=== PATIENT | male | born 1945 | race Caucasian/White ===

== ENCOUNTER 2018-02-12 12:05 | Emergency (ER) | payer MEDICARE, OTHER ==
[2018-02-12 12:21] VITALS: BP 102/47
--- NOTE | 2018-02-12 13:04 | UC ---
Sofia Vasquez Jade, scribed for Jean-Pierre Go MD on 02/12/18 at 1256 . Syncope/New Syncope HPI - HPI Summary HPI Summary: Patient is a 72 y/o male who presents to [facility] s/p near-syncopal episode. He states after walking 18 holes while golfing, he suddenly became dizzy, diaphoretic, and felt like he was going to pass out. Patient denies any LOC, CP , SOB, headache, or blurred vision. PMHx HTN and diabetes. - History Of Current Complaint Chief Complaint: UCDizziness Stated Complaint: DIZZY Time Seen by Provider: 02/12/18 12:12 Hx Obtained From: Patient Onset/Duration: Sudden Onset, Resolved Activity At Onset: Exertion - Walked 18 holes while golfing Timing: Constant Context: Other - No LOC Pain Intensity: 0 Pain Scale Used: 0-10 Numeric Aggravating Factor(s): Exertion - Walking 18 holes while golfing Alleviating Factor(s): Nothing Associated Signs And Symptoms: Positive: Diaphoresis, Dizzy. Negative: Chest Pain, Headache - Allergies/Home Medications Allergies/Adverse Reactions: Allergies Allergy/AdvReac Type Severity Reaction Status Date / Time No Known Allergies Allergy Verified 02/12/18 12:18 Home Medications: Home Medications Atorvastatin* [Lipitor*] 40 mg PO 1700 02/12/18 [History Confirmed 02/12/18] Baclofen TAB* [Lioresal TAB*] 10 mg PO TID 02/12/18 [History Confirmed 02/12/18] Cholecalciferol TAB* [Vitamin D TAB*] 1,000 unit PO DAILY 02/12/18 [History Confirmed 02/12/18] Esomeprazole(NF) [NexIUM(NF)] 40 mg PO DAILY 02/12/18 [History Confirmed ] Ferrous Sulfate TAB* 325 mg PO DAILY 02/12/18 [History Confirmed 02/12/18] Lisinopril TAB* [Prinivil TAB*] 10 mg PO DAILY 02/12/18 [History Confirmed 02/12] Sertraline* [Zoloft*] 100 mg PO DAILY 02/12/18 [History Confirmed 02/12/18] SitaGLIPtin (NF) [Januvia (NF)] 100 mg PO 02/12/18 [History] metFORMIN* [Glucophage 850 MG TAB *] 850 mg PO 0800,1700 02/12/18 [History Confirmed 02/12/18] PMH/Surg Hx/FS Hx/Imm Hx Endocrine History: Diabetes - Type 2 Cardiovascular History: Hypertension - Surgical History Surgical History: Yes Surgery Procedure, Year, and Place: detached retina. cataracts - Family History Known Family History: Negative: Hypertension, Diabetes - Social History Alcohol Use: None Substance Use Type: None Smoking Status (MU): Never Smoked Tobacco Review of Systems Constitutional: Other - Diaphoresis Eyes: Negative - Blurred vision Respiratory: Negative - SOB Cardiovascular: Negative - CP Neurological: Other - POSITIVE: dizziness, NEGATIVE: headache, LOC All Other Systems Reviewed And Are Negative: Yes Physical Exam - Summary Physical Exam Summary: VITAL SIGNS: Reviewed. GENERAL: Patient is a well-developed and nourished MALE who is lying comfortable in the stretcher. Patient is not in any acute respiratory distress. HEAD AND FACE: Normocephalic EYES: PERRLA, EOMI x 2. EARS: Hearing grossly intact. MOUTH: Oropharynx within normal limits. NECK: Supple, trachea is midline, no adenopathy, no JVD, no carotid bruit. CHEST: Symmetric, no tenderness at palpation LUNGS: Clear to auscultation bilaterally. No wheezing or crackles. CVS: Regular rate and rhythm, S1 and S2 present, no murmurs or gallops appreciated. ABDOMEN: Soft, non-tender. Bowel sounds are normal. No abdominal abnormal pulsations. EXTREMITIES: Full ROM in all major joints, no edema, no cyanosis or clubbing. NEURO: Alert and oriented x 3. No acute neurological deficits. Speech is normal and follows commands. SKIN: Dry and warm Triage Information Reviewed: Yes Vital Signs: Initial Vital Signs Temp 97.1 F 02/12/18 12:13 Pulse 65 02/12/18 12:13 Resp 16 02/12/18 12:13 BP 102/47 02/12/18 12:13 Pulse Ox 94 02/12/18 12:13 Vital Signs Reviewed: Yes Diagnostics - EKG Cardiac Rate: NL - 66 bpm Cardiac Rhythm: Sinus: Normal ST Segment: Normal - No elevation Syncope Course/Dx - Course Course Of Treatment: Patient presented to the urgent care with a chief complaint of having dizziness, feeling like he is going to pass out when he was playing golf. He reports that he became diaphoretic and still having some dizziness in the . EKG shows normal sinus rhythm without any ST elevation. Because of his comorbidities, presentation symptoms have recommended for the patient to go to the emergency department for further workup and management. The patient declined going to the [facility] emergency department. She reports that he would like to go to [facility] ER. She declined ambulance transport. He was going with the patient's . I extensively discussed with the patient the benefits and risk of leaving AMA. I also discussed the alternatives to leaving AMA, however, the patient still insist to leave the AMA.. The primary nurse and the charge nurse also strongly recommended that the patient should not leave AMA. Patient understands the risk of leaving AMA, which includes but is not restricted to . Patient is Alert and oriented times three and patient verbalizes understanding. Patient has full capacity and is cognitively intact. Patient signed the AMA form. Patient was also advised to return to ED if he changes his mind or if the symptoms worsen or other symptoms appear. Patient understands and agrees. - Differential Dx/Diagnosis Provider Diagnoses: Near Syncope. Dizziness Discharge - Sign-Out/Discharge Documenting (check all that apply): Discharge/Admit/Transfer - Discharge Plan Condition: Stable Disposition: HOME Patient Education Materials: Near Syncope (ED), Dizziness (ED) Referrals: Atul UPTON,Morris Amanda [Primary Care Provider] - Additional Instructions: Patient will be discharged to the ED for further assessment. He declines going to [facility] she said department, he prefers to go to [facility] ER. Patient declined ambulance - Billing Disposition and Condition Condition: STABLE Disposition: Home The documentation as recorded by the Sofia bautista Jade accurately reflects the service I personally performed and the decisions made by me, Jean-Pierre Go MD.
== END 2018-02-12 13:53 | disposition left against medical advice (07) ==
LOC: UCEAST 12:05
DX: R55 Syncope and collapse (principal); R42 Dizziness and giddiness; R61 Generalized hyperhidrosis; E11.9 Type 2 diabetes mellitus without complications; Z79.84 Long term (current) use of oral hypoglycemic drugs; I10 Essential (primary) hypertension
CPT/HCPCS: 93005; 99202; G0463

== ENCOUNTER 2018-02-12 14:17 | Emergency (ER) | payer MEDICARE, OTHER ==
[2018-02-12] MEDS ORDERED: NS 0.9% 1000 ML* 1,000 ML IV ONE (14:48)
[2018-02-12] MEDS ORDERED: Meclizine TAB* 12.5 MG PO ONE (14:48)
[2018-02-12 15:06] LABS: ABS Basophils 0 10^3/ul (0-0.2); ABS Eosinophils 0 10^3/ul (0-0.6); ABS Lymphocytes 0.7 10^3/ul (1.0-4.8); ABS Monocytes 0.9 10^3/ul (0-0.8); ABS Neutrophils 11.3 10^3/ul (1.5-7.7); ABS Nucleated RBC 0 10^3/ul; Eosinophil % 0.2 % (0-6); Hematocrit 39 % (42-52); Hemoglobin 12.9 g/dl (14.0-18.0); Lymphocyte % 5.7 % (25-47); Mean Corpuscular HGB Conc 33 g/dl (31-36); Mean Corpuscular Hemoglobin 28 pg (27-31); Mean Corpuscular Volume 82 fL (80-94); Mean Platelet Volume 7.3 um3 (7.4-10.4); Nucleated Red Blood Cells % 0; Platelet Count 211 10^3/ul (150-450); Red Blood Count 4.71 10^6/ul (4.00-5.40); Red Cell Distribution Width 15 % (10.5-15); White Blood Count 12.9 10^3/ul (3.5-10.8)
[2018-02-12 15:14] LABS: INR 0.98 (0.77-1.02)
--- NOTE | 2018-02-12 15:22 | RAD ---
INDICATION: Dizziness, intermittent left arm numbness. COMPARISON: Comparison is made with prior MRI of the brain from November 19, 2006. TECHNIQUE: Contiguous axial sections of the brain were obtained from the skull base to the vertex without contrast. FINDINGS: The ventricles, cisterns and sulci are enlarged consistent with diffuse atrophy. There are multiple focal areas of decreased density in the subcortical and periventricular white matter suggestive of moderate to severe chronic small vessel ischemic changes. No other focal abnormality or mass effect is seen. There is no evidence for hemorrhage. No significant focal osseous abnormality is seen. There is partial opacification of the sphenoid sinus on the right side. The visualized portion of the paranasal sinuses and mastoid air cells otherwise appear clear. IMPRESSION: 1. NO EVIDENCE FOR ACUTE FINDING. 2. ATROPHY AND FINDINGS MOST CONSISTENT WITH MODERATE TO SEVERE CHRONIC SMALL VESSEL ISCHEMIC CHANGES.
[2018-02-12 15:24] LABS: EGFR Non-African American 42.8 (>60)
--- NOTE | 2018-02-12 15:53 | RAD ---
INDICATION: Dizziness. COMPARISON: There are no prior studies available for comparison. TECHNIQUE: A portable view of the chest was obtained. FINDINGS: Cardiac and mediastinal contours appear to be within normal limits. There is a curvilinear density at the left lung base suggestive of atelectasis or scarring. The lungs are otherwise clear. No pleural effusion is seen. IMPRESSION: NO EVIDENCE FOR ACUTE DISEASE.
[2018-02-12] MEDS ORDERED: Magnesium Sulfate 2 GM IV* 2 GM/50 ML BAG IVPB ONE (16:23)
[2018-02-12] MEDS ORDERED: NS 0.9% 100 ML* 100 ML ONE (16:44)
[2018-02-12] MEDS ORDERED: Magnesium Sulfate IV* 2 GM in NS 0.9% 100 ML* 100 ML IVPB ONE (17:00)
[2018-02-12 17:54] LABS: Urine Appearance Cloudy; Urine Blood Negative (Negative); Urine Color Yellow; Urine Ketones Negative (Negative); Urine Protein Negative (Negative); Urine Specific Gravity 1.016 (1.010-1.030); Urine Urobilinogen Negative (Negative)
--- NOTE | 2018-02-12 19:02 | ED ---
Pedro, AttebDaniel dozier, scribed for Oswaldo Garnica MD on 02/12/18 at 1509 . Dizziness - HPI Summary HPI Summary: Pt is a 72 y/o M referred from [facility] c/o dizziness and feeling "disoriented" following playing golf this AM. Dizziness characterized as lightheadedness and spinning, somewhat similar to prior instances of vertigo. Currently, not present. Pt denies SOB, palpitations, ear pain, bloody stool. Aggravating factors: ambulation. Alleviating factors: rest. Pt states that he was on the last hole of 18 when he started feeling light headed. He was incapable of finishing hole so he laid down in the shade to rest. Witnesses noted diaphoresis while laying down. Pt was previously recommended by PCP that he should walk half of the course and ride the other, however, today he walked entire course. He noted constipation and mild abdominal pain this AM but has since resolved. Pt also noted intermittent tingling in his left arm for a few days, currently not present. PMHx: MS, noted that pt has had vertigo. - History Of Current Complaint Chief Complaint: EDSyncope Stated Complaint: NEAR SYNCOPE-SENT F/CC Time Seen by Provider: 02/12/18 14:26 Hx Obtained From: Patient Onset/Duration: Resolved, Gradually Severity Currently: None Character: Room Spinning - similar to vertigo, Lightheaded, Dizzy Aggravating Factor(s): Exertion Alleviating Factor(s): Rest, Lying Down Associated Signs And Symptoms: Positive: Diaphoresis. Negative: SOB, Fever - Allergies/Home Medications Allergies/Adverse Reactions: Allergies Allergy/AdvReac Type Severity Reaction Status Date / Time No Known Allergies Allergy Verified 02/12/18 12:18 PMH/Surg Hx/FS Hx/Imm Hx Endocrine/Hematology History: Reports: Hx Diabetes - type II Cardiovascular History: Reports: Hx Hypertension - Surgical History Surgery Procedure, Year, and Place: detached retina. cataracts Infectious Disease History: No Infectious Disease History: Denies: Traveled Outside the [place] in Last 30 Days - Family History Known Family History: Negative: Hypertension, Diabetes - Social History Occupation: Retired Lives: With Family Alcohol Use: None Substance Use Type: Reports: None Smoking Status (MU): Never Smoked Tobacco Review of Systems Positive: Skin Diaphoresis. Negative: Fever Negative: Ear Ache Negative: Chest Pain Negative: Shortness Of Breath Negative: other - bloody stool Neurological: Other - dizziness (resolved), "disoriented," tingling in LUE All Other Systems Reviewed And Are Negative: Yes Physical Exam - Summary Physical Exam Summary: General: well-appearing, no pain distress Skin: warm, color reflects adequate perfusion, dry Head: normal Eyes: EOMI, ADELE ENT: normal Neck: supple, nontender Respiratory: CTA, breath sounds present Cardiovascular: RRR Abdomen: soft, nontender Bowel: present Musculoskeletal: normal, strength/ROM intact Neurological: sensory/motor intact, A&O x3 Psychological: affect/mood appropriate Triage Information Reviewed: Yes Vital Signs On Initial Exam: Initial Vitals Temp Pulse Resp BP Pulse Ox 97.8 F 78 18 121/70 97 02/12/18 14:21 02/12/18 14:21 02/12/18 14:21 02/12/18 14:21 02/12/18 14:21 Vital Signs Reviewed: Yes Diagnostics - Vital Signs Vital Signs Temp Pulse Resp BP Pulse Ox 02/12/18 14:21 97.8 F 78 18 121/70 97 - Laboratory Lab Results: Lab Results 02/12/18 02/12/18 02/12/18 Range/Units 14:59 14:59 14:59 WBC 12.9 H (3.5-10.8) 10^3/ul RBC 4.71 (4.00-5.40) 10^6/ul Hgb 12.9 L (14.0-18.0) g/dl Hct 39 L (42-52) % MCV 82 (80-94) fL MCH 28 (27-31) pg MCHC 33 (31-36) g/dl RDW 15 (10.5-15) % Plt Count 211 (150-450) 10^3/ul MPV 7.3 L (7.4-10.4) um3 Neut % (Auto) 87.2 H (38-83) % Lymph % (Auto) 5.7 L (25-47) % [place] % (Auto) 6.6 (0-7) % Eos % (Auto) 0.2 (0-6) % Baso % (Auto) 0.3 (0-2) % Absolute Neuts (auto) 11.3 H (1.5-7.7) 10^3/ul Absolute Lymphs (auto) 0.7 L (1.0-4.8) 10^3/ul Absolute Monos (auto) 0.9 H (0-0.8) 10^3/ul Absolute Eos (auto) 0 (0-0.6) 10^3/ul Absolute Basos (auto) 0 (0-0.2) 10^3/ul Absolute Nucleated RBC 0 10^3/ul Nucleated RBC % 0 INR (Anticoag Therapy) 0.98 (0.77-1.02) APTT 27.9 (26.0-36.3) seconds Sodium 141 (135-145) mmol/L Potassium 4.9 (3.5-5.0) mmol/L Chloride 106 (101-111) mmol/L Carbon Dioxide 25 (22-32) mmol/L Anion Gap 10 (2-11) mmol/L BUN 30 H (6-24) mg/dL Creatinine 1.60 H (0.67-1.17) mg/dL Est GFR ( Amer) 51.8 (>60) Est GFR (Non-Af Amer) 42.8 (>60) BUN/Creatinine Ratio 18.8 (8-20) Glucose 148 H (70-100) mg/dL Lactic Acid (0.5-2.0) mmol/L Calcium 9.5 (8.6-10.3) mg/dL Magnesium 1.6 L (1.9-2.7) mg/dL Total Bilirubin 0.80 (0.2-1.0) mg/dL AST 21 (13-39) U/L ALT 16 (7-52) U/L Alkaline Phosphatase 100 (34-104) U/L Total Creatine Kinase 69 (10-223) U/L CK-MB (CK-2) 1.9 (0.6-6.3) ng/mL Troponin I 0.00 (<0.04) ng/mL C-Reactive Protein 1.25 (<8.01) mg/L B-Natriuretic Peptide ( - 100) pg/mL Total Protein 7.1 (6.4-8.9) g/dL Albumin 4.2 (3.2-5.2) g/dL Globulin 2.9 (2-4) g/dL Albumin/Globulin Ratio 1.4 (1-3) Lipase 68 (11.0-82.0) U/L TSH 2.38 (0.34-5.60) mcIU/mL Urine Color Urine Appearance Urine pH (5-9) Ur Specific Ida (1.010-1.030) Urine Protein (Negative) Urine Ketones (Negative) Urine Blood (Negative) Urine Nitrate (Negative) Urine Bilirubin (Negative) Urine Urobilinogen (Negative) Ur Leukocyte Esterase (Negative) Urine Glucose (Negative) 02/12/18 02/12/18 02/12/18 Range/Units 14:59 14:59 17:31 WBC (3.5-10.8) 10^3/ul RBC (4.00-5.40) 10^6/ul Hgb (14.0-18.0) g/dl Hct (42-52) % MCV (80-94) fL MCH (27-31) pg MCHC (31-36) g/dl RDW (10.5-15) % Plt Count (150-450) 10^3/ul MPV (7.4-10.4) um3 Neut % (Auto) (38-83) % Lymph % (Auto) (25-47) % [place] % (Auto) (0-7) % Eos % (Auto) (0-6) % Baso % (Auto) (0-2) % Absolute Neuts (auto) (1.5-7.7) 10^3/ul Absolute Lymphs (auto) (1.0-4.8) 10^3/ul Absolute Monos (auto) (0-0.8) 10^3/ul Absolute Eos (auto) (0-0.6) 10^3/ul Absolute Basos (auto) (0-0.2) 10^3/ul Absolute Nucleated RBC 10^3/ul Nucleated RBC % INR (Anticoag Therapy) (0.77-1.02) APTT (26.0-36.3) seconds Sodium (135-145) mmol/L Potassium (3.5-5.0) mmol/L Chloride (101-111) mmol/L Carbon Dioxide (22-32) mmol/L Anion Gap (2-11) mmol/L BUN (6-24) mg/dL Creatinine (0.67-1.17) mg/dL Est GFR ( Amer) (>60) Est GFR (Non-Af Amer) (>60) BUN/Creatinine Ratio (8-20) Glucose (70-100) mg/dL Lactic Acid 1.5 (0.5-2.0) mmol/L Calcium (8.6-10.3) mg/dL Magnesium (1.9-2.7) mg/dL Total Bilirubin (0.2-1.0) mg/dL AST (13-39) U/L ALT (7-52) U/L Alkaline Phosphatase (34-104) U/L Total Creatine Kinase (10-223) U/L CK-MB (CK-2) (0.6-6.3) ng/mL Troponin I 0.00 (<0.04) ng/mL C-Reactive Protein (<8.01) mg/L B-Natriuretic Peptide 33 ( - 100) pg/mL Total Protein (6.4-8.9) g/dL Albumin (3.2-5.2) g/dL Globulin (2-4) g/dL Albumin/Globulin Ratio (1-3) Lipase (11.0-82.0) U/L TSH (0.34-5.60) mcIU/mL Urine Color Urine Appearance Urine pH (5-9) Ur Specific Ida (1.010-1.030) Urine Protein (Negative) Urine Ketones (Negative) Urine Blood (Negative) Urine Nitrate (Negative) Urine Bilirubin (Negative) Urine Urobilinogen (Negative) Ur Leukocyte Esterase (Negative) Urine Glucose (Negative) 02/12/18 Range/Units 17:45 WBC (3.5-10.8) 10^3/ul RBC (4.00-5.40) 10^6/ul Hgb (14.0-18.0) g/dl Hct (42-52) % MCV (80-94) fL MCH (27-31) pg MCHC (31-36) g/dl RDW (10.5-15) % Plt Count (150-450) 10^3/ul MPV (7.4-10.4) um3 Neut % (Auto) (38-83) % Lymph % (Auto) (25-47) % [place] % (Auto) (0-7) % Eos % (Auto) (0-6) % Baso % (Auto) (0-2) % Absolute Neuts (auto) (1.5-7.7) 10^3/ul Absolute Lymphs (auto) (1.0-4.8) 10^3/ul Absolute Monos (auto) (0-0.8) 10^3/ul Absolute Eos (auto) (0-0.6) 10^3/ul Absolute Basos (auto) (0-0.2) 10^3/ul Absolute Nucleated RBC 10^3/ul Nucleated RBC % INR (Anticoag Therapy) (0.77-1.02) APTT (26.0-36.3) seconds Sodium (135-145) mmol/L Potassium (3.5-5.0) mmol/L Chloride (101-111) mmol/L Carbon Dioxide (22-32) mmol/L Anion Gap (2-11) mmol/L BUN (6-24) mg/dL Creatinine (0.67-1.17) mg/dL Est GFR ( Amer) (>60) Est GFR (Non-Af Amer) (>60) BUN/Creatinine Ratio (8-20) Glucose (70-100) mg/dL Lactic Acid (0.5-2.0) mmol/L Calcium (8.6-10.3) mg/dL Magnesium (1.9-2.7) mg/dL Total Bilirubin (0.2-1.0) mg/dL AST (13-39) U/L ALT (7-52) U/L Alkaline Phosphatase (34-104) U/L Total Creatine Kinase (10-223) U/L CK-MB (CK-2) (0.6-6.3) ng/mL Troponin I (<0.04) ng/mL C-Reactive Protein (<8.01) mg/L B-Natriuretic Peptide ( - 100) pg/mL Total Protein (6.4-8.9) g/dL Albumin (3.2-5.2) g/dL Globulin (2-4) g/dL Albumin/Globulin Ratio (1-3) Lipase (11.0-82.0) U/L TSH (0.34-5.60) mcIU/mL Urine Color Yellow Urine Appearance Cloudy Urine pH 5.0 (5-9) Ur Specific Ida 1.016 (1.010-1.030) Urine Protein Negative (Negative) Urine Ketones Negative (Negative) Urine Blood Negative (Negative) Urine Nitrate Negative (Negative) Urine Bilirubin Negative (Negative) Urine Urobilinogen Negative (Negative) Ur Leukocyte Esterase Negative (Negative) Urine Glucose Negative (Negative) Result Diagrams: 02/12/18 14:59 02/12/18 14:59 Lab Statement: Any lab studies that have been ordered have been reviewed, and results considered in the medical decision making process. - Radiology CXR Xray Interpretation: No Acute Changes - IMPRESSION: NO EVIDENCE FOR ACUTE DISEASE. Radiology Interpretation Completed By: Radiologist - CT Brain CT CT Interpretation: Positive (See Comments) - IMPRESSION: NO EVIDENCE FOR ACUTE FINDING. ATROPHY AND FINDINGS MOST CONSISTENT WITH MODERATE TO SEVERE CHRONIC SMALL VESSEL ISCHEMIC CHANGES. CT Interpretation Completed By: Radiologist - EKG 1516 Cardiac Rate: NL - 74 bpm EKG Rhythm: Sinus Rhythm ST Segment: Normal Ectopy: None Dizzy Course/Dx - Course Course Of Treatment: WELL IN ED. NO WEAKNESS WITH THE TRANSIENT LEFT ARM NUMBNESS THAT HAS BEEN OCCURRING ON AND OFF FOR 3 DAYS. NO CHEST PAIN OR SOB. AMBULATED IN ED AND CONTINUED TO BE ASYMPTOMATIC. F/U PMD; RETURN TO ED IF WORSE. - Diagnoses Provider Diagnoses: Near syncope, Dizziness, Paresthesia Discharge - Sign-Out/Discharge Documenting (check all that apply): Discharge/Admit/Transfer - Discharge Plan Condition: Stable Disposition: HOME Patient Education Materials: Paresthesia (ED), Near Syncope (ED) Referrals: Vilma Harrison MD [Primary Care Provider] - Additional Instructions: FOLLOW UP WITH YOUR DOCTOR. RETURN TO THE EMERGENCY DEPARTMENT FOR ANY WORSENING OF YOUR CONDITION; CHEST PAIN, SHORTNESS OF BREATH, YOU FEEL LIKE PASSING OUT, WEAKNESS, NUMBNESS OR QUESTIONS OR CONCERNS. - Billing Disposition and Condition Condition: STABLE Disposition: Home The documentation as recorded by the Elaine bautista Michael accurately reflects the service I personally performed and the decisions made by me, Oswaldo Garnica MD.
[2018-02-12 19:07] VITALS: BP 119/58
== END 2018-02-12 19:04 | disposition home or self-care (01) ==
LOC: ED 14:17
DX: R55 Syncope and collapse (principal); R42 Dizziness and giddiness; R20.2 Paresthesia of skin; G31.9 Degenerative disease of nervous system, unspecified; R61 Generalized hyperhidrosis; E11.9 Type 2 diabetes mellitus without complications; I10 Essential (primary) hypertension; Z79.84 Long term (current) use of oral hypoglycemic drugs
CPT/HCPCS: 36415; 70450; 71045; 80053; 81003; 82550; 82553; 83605; 83690; 83735; 83880; 84443; 84484; 85025; 85610; 85730; 86140; 93005; 96374; 99283; A9270-GY; J3475